=== PATIENT | male | born 1995 | race Two or more races ===

== ENCOUNTER 2020-05-22 11:55 | Observation (INO) | payer SELFPAY ==
[2020-05-22] VITALS (9 sets, daily range): BP systolic 94–120; BP diastolic 48–58
[~2020-05-22] VITALS: Ht 180.3 cm; Wt 80.2 kg
[2020-05-22] MEDS ORDERED: ONDANSETRON PF 4 MG/2 ML VIAL. IV ONE (12:15)
[2020-05-22] MEDS ORDERED: fentaNYL PF VIAL 100 MCG/2 ML VIAL IV ONE ×2 (12:15→13:15)
[2020-05-22] MEDS ORDERED: IV NORMAL SALINE 1000ML BAG 1,000 ML IV ONE (12:15)
[2020-05-22 12:24] LABS: BASO % 0 % (0-3); EOS % 0 % (0-3); HEMATOCRIT 46.5 % (39.0-53.0); HEMOGLOBIN 16.1 g/dL (13.0-17.5); LYMPH # 1.5 x10^3/uL (1.0-4.8); LYMPH % 6 % (24-48); MEAN CORPUSCULAR HEMOGLOBIN 31 pg (25-35); MEAN CORPUSCULAR HGB CONC 35 g/dL (31-37); MEAN CORPUSCULAR VOLUME 90 fL (79-100); MONO # 1.1 x10^3/uL (0.0-1.1); MONO % 5 % (0-9); NEUT # 21.1 x10^3/uL (1.8-7.7); NEUT % 89 % (31-73); PLATELET COUNT 242 x10^3/uL (140-400); RED BLOOD COUNT 5.17 x10^6/uL (4.30-5.70); RED CELL DISTRIBUTION WIDTH 12.7 % (11.5-14.5); WHITE BLOOD COUNT 23.7 x10^3/uL (4.0-11.0)
[2020-05-22 12:35] LABS: CALCIUM 9.7 mg/dL (8.5-10.1); CREATININE 1.2 mg/dL (0.7-1.3); GFR 74.4; POTASSIUM 3.8 mmol/L (3.5-5.1)
[2020-05-22 12:36] LABS: PROTHROMBIN TIME PATIENT 15.8 SEC (11.7-14.0)
[2020-05-22 12:40] LABS: ALBUMIN 3.9 g/dL (3.4-5.0); ALBUMIN/GLOBULIN RATIO 0.9 (1.0-1.7); TOTAL BILIRUBIN 1.2 mg/dL (0.2-1.0); TOTAL PROTEIN 8.4 g/dL (6.4-8.2)
--- NOTE | 2020-05-22 12:55 | RAD ---
PQRS Compliance Statement: One or more of the following individualized dose reduction techniques were utilized for this examination: 1. Automated exposure control 2. Adjustment of the mA and/or kV according to patient size 3. Use of iterative reconstruction technique CT ABD PELV W/ IV CONTRST ONLY Clinical Indication: Reason: penetrating trauma, hit by animal on low abdomen pelvis area. Comparison: None. Technique: Helical CT imaging of the abdomen and pelvis is performed after 75 cc of Omnipaque 300 IV contrast. Oral contrast not administered. Findings: There are a few tiny foci of subcutaneous air of the bilateral mid abdominal wall, coronal image 9. There is small pocket of intramuscular air of the lower right oblique muscle. There are bubbles of intraperitoneal air in the right lower abdomen with associated induration, for example image 65. There is induration lateral to the ascending colon, coronal image 19. No obvious penetrating injury to the colon is identified. Minimal discoid atelectasis or scarring in the lateral left lower lobe. Lung bases otherwise clear. Cardiac size normal. The liver, gallbladder, spleen, pancreas, adrenal glands, abdominal aorta, and kidneys are normal. No obvious abnormality of the stomach. There is no dilated small bowel. No colon wall thickening is seen. Appendix not seen, no secondary signs of appendicitis. No abdominal adenopathy. Urinary bladder is normal. The prostate and seminal vesicles are normal. There is no pelvic free fluid. Bilateral inguinal lymph nodes may be reactive. There is subcutaneous induration of the anterior right upper thigh and the right lateral abdominal wall, coronal image 8. No acute bone abnormality. IMPRESSION: There is evidence of penetrating injury of the right lower abdomen. There is induration and trace fluid lateral to the ascending colon. There is a small amount of intraperitoneal air in the right lower abdomen. No obvious penetrating injury of the ascending colon is identified. Electronically signed by: Chavez Caban MD (05/22/2020 12:52 PM) [id number]
[2020-05-22] MEDS ORDERED: IOHEXOL 300 MG/ML 100ML VIAL. IV ONE (13:00)
[2020-05-22] MEDS ORDERED: CONTRAST GIVEN. MC PRN (13:00)
[2020-05-22] MEDS ORDERED: ONDANSETRON PF 4 MG/2 ML VIAL. IV PRN ×2 (13:30→16:00)
[2020-05-22] MEDS: IV NORMAL SALINE 1000ML BAG 1,000 ML IV SCH ×2 (13:33→17:09)
--- NOTE | 2020-05-22 13:36 | PHYS DOC ---
Past Medical History Past Medical History: No Pertinent History Past Surgical History: No Surgical History Smoking Status: Current Every Day Smoker Alcohol Use: None General Adult EDM: Chief Complaint: TRAUMA ALERT HPI: HPI: Patient is a 25-year-old male who presents POV as a trauma alert. Patient states that he was gored in the right lower quadrant by a [employer] at approximately midnight today. He last ate at approximately 1 AM. He states the pain has intensified over the course of the last 12 hours. He denies any nausea or vomiting. He is not noticed any blood in his stool. He has not noticed any blood in his urine. He is felt nauseous but no vomiting. [] Review of Systems: Review of Systems: Constitutional: Denies fever or chills. [] Eyes: Denies change in visual acuity. [] HENT: Denies nasal congestion or sore throat. [] Respiratory: Denies cough or shortness of breath. [] Cardiovascular: Denies chest pain or edema. [] GI: Per HPI [] : Denies dysuria. [] Musculoskeletal: Denies back pain or joint pain. [] Integument: Denies rash. [] Neurologic: Denies headache, focal weakness or sensory changes. [] Endocrine: Denies polyuria or polydipsia. [] Lymphatic: Denies swollen glands. [] Psychiatric: Reports anxiety [] Heart Score: Risk Factors: Risk Factors: DM, Current or recent (<one month) smoker, HTN, HLP, family history of CAD, obesity. Risk Scores: Score 0 - 3: 2.5% MACE over next 6 weeks - Discharge Home Score 4 - 6: 20.3% MACE over next 6 weeks - Admit for Clinical Observation Score 7 - 10: 72.7% MACE over next 6 weeks - Early Invasive Strategies Current Medications: Current Medications Medications (Trade) Dose Ordered Sig/Mihai Start Time Stop Time Status Last Admin Dose Admin Cefazolin Sodium/ Dextrose 50 ml @ 100 mls/hr 1X ONCE 05/22/20 12:15 05/22/20 12:44 DC 05/22/20 12:41 100 MLS/HR Fentanyl Citrate (Fentanyl 2ml Vial) 50 mcg PRN Q1HR PRN 05/22/20 13:30 05/23/20 13:29 Info (CONTRAST GIVEN -- Rx MONITORING) 1 each PRN DAILY PRN 05/22/20 13:00 05/24/20 12:59 Iohexol (Omnipaque 300 Mg/ml) 75 ml 1X ONCE 05/22/20 13:00 05/22/20 13:01 DC Ondansetron HCl (Zofran) 4 mg PRN Q8HRS PRN 05/22/20 13:30 05/23/20 13:29 Sodium Chloride 1,000 ml @ 150 mls/hr Q6H40M 05/22/20 13:22 05/23/20 13:21 Allergies: Allergies: Allergies Coded Allergies Type Severity Reaction Last Updated Verified No Known Drug Allergies 05/22/20 No Physical Exam: PE: Constitutional: Well developed, well nourished, moderate distress, non-toxic appearance. [] HENT: Normocephalic, atraumatic, bilateral external ears normal, oropharynx moist, no oral exudates, nose normal. [] Eyes: PERRLA, EOMI, conjunctiva normal, no discharge. [] Neck: Normal range of motion, no tenderness, supple, no stridor. [] Cardiovascular:Heart rate regular rhythm, no murmur [] Lungs & Thorax: Bilateral breath sounds clear to auscultation [] Abdomen: Diffusely tender to palp with guarding and rebound most specific in the right lower quadrant [] Skin: 3 to 4 cm horizontal laceration in the right lower quadrant with surrounding swelling as well as tenderness, there is an abrasion in his right anterior upper thigh [] Back: No tenderness, no CVA tenderness. [] Extremities: No tenderness, no cyanosis, no clubbing, ROM intact, no edema. [] Neurologic: Alert and oriented X 3, normal motor function, normal sensory function, no focal deficits noted. [] Psychologic: Anxious. [] Current Patient Data: Labs: Laboratory Tests Test 05/22/20 12:10 White Blood Count 23.7 x10^3/uL (4.0-11.0) H Red Blood Count 5.17 x10^6/uL (4.30-5.70) Hemoglobin 16.1 g/dL (13.0-17.5) Hematocrit 46.5 % (39.0-53.0) Mean Corpuscular Volume 90 fL (79-100) Mean Corpuscular Hemoglobin 31 pg (25-35) Mean Corpuscular Hemoglobin Concent 35 g/dL (31-37) Red Cell Distribution Width 12.7 % (11.5-14.5) Platelet Count 242 x10^3/uL (140-400) Neutrophils (%) (Auto) 89 % (31-73) H Lymphocytes (%) (Auto) 6 % (24-48) L Monocytes (%) (Auto) 5 % (0-9) Eosinophils (%) (Auto) 0 % (0-3) Basophils (%) (Auto) 0 % (0-3) Neutrophils # (Auto) 21.1 x10^3/uL (1.8-7.7) H Lymphocytes # (Auto) 1.5 x10^3/uL (1.0-4.8) Monocytes # (Auto) 1.1 x10^3/uL (0.0-1.1) Eosinophils # (Auto) 0.0 x10^3/uL (0.0-0.7) Basophils # (Auto) 0.0 x10^3/uL (0.0-0.2) Platelet Estimate Pending Prothrombin Time 15.8 SEC (11.7-14.0) H Prothrombin Time INR 1.3 (0.8-1.1) H Sodium Level 136 mmol/L (136-145) Potassium Level 3.8 mmol/L (3.5-5.1) Chloride Level 100 mmol/L (98-107) Carbon Dioxide Level 27 mmol/L (21-32) Anion Gap 9 (6-14) Blood Urea Nitrogen 11 mg/dL (8-26) Creatinine 1.2 mg/dL (0.7-1.3) Estimated GFR (Cockcroft-Gault) 74.4 BUN/Creatinine Ratio 9 (6-20) Glucose Level 110 mg/dL (70-99) H Calcium Level 9.7 mg/dL (8.5-10.1) Total Bilirubin 1.2 mg/dL (0.2-1.0) H Aspartate Amino Transferase (AST) 45 U/L (15-37) H Alanine Aminotransferase (ALT) 41 U/L (16-63) Alkaline Phosphatase 86 U/L (46-116) Total Protein 8.4 g/dL (6.4-8.2) H Albumin 3.9 g/dL (3.4-5.0) Albumin/Globulin Ratio 0.9 (1.0-1.7) L Ethyl Alcohol Level < 10 mg/dL (0-10) Laboratory Tests 05/22/20 12:10 Laboratory Tests 05/22/20 12:10 Vital Signs: Vital Signs Date Time Temp Pulse Resp B/P (MAP) Pulse Ox O2 Delivery O2 Flow Rate FiO2 05/22/20 11:58 98.7 87 20 156/79 (104) 96 Room Air 98.7 EKG: EKG: [] Radiology/Procedures: Radiology/Procedures: []REASON: penetrating trauma, hit by animal on low abdomen pelvis area. PROCEDURE: CT ABD PELV W/ IV CONTRST ONLY PQRS Compliance Statement: One or more of the following individualized dose reduction techniques were utilized for this examination: 1. Automated exposure control 2. Adjustment of the mA and/or kV according to patient size 3. Use of iterative reconstruction technique CT ABD PELV W/ IV CONTRST ONLY Clinical Indication: Reason: penetrating trauma, hit by animal on low abdomen pelvis area. Comparison: None. Technique: Helical CT imaging of the abdomen and pelvis is performed after 75 cc of Omnipaque 300 IV contrast. Oral contrast not administered. Findings: There are a few tiny foci of subcutaneous air of the bilateral mid abdominal wall, coronal image 9. There is small pocket of intramuscular air of the lower right oblique muscle. There are bubbles of intraperitoneal air in the right lower abdomen with associated induration, for example image 65. There is induration lateral to the ascending colon, coronal image 19. No obvious penetrating injury to the colon is identified. Minimal discoid atelectasis or scarring in the lateral left lower lobe. Lung bases otherwise clear. Cardiac size normal. The liver, gallbladder, spleen, pancreas, adrenal glands, abdominal aorta, and kidneys are normal. No obvious abnormality of the stomach. There is no dilated small bowel. No colon wall thickening is seen. Appendix not seen, no secondary signs of appendicitis. No abdominal adenopathy. Urinary bladder is normal. The prostate and seminal vesicles are normal. There is no pelvic free fluid. Bilateral inguinal lymph nodes may be reactive. There is subcutaneous induration of the anterior right upper thigh and the right lateral abdominal wall, coronal image 8. No acute bone abnormality. IMPRESSION: There is evidence of penetrating injury of the right lower abdomen. There is induration and trace fluid lateral to the ascending colon. There is a small amount of intraperitoneal air in the right lower abdomen. No obvious penetrating injury of the ascending colon is identified. Course & Med Decision Making: Course & Med Decision Making Pertinent Labs and Imaging studies reviewed. (See chart for details) [ED course: Evaluation reveals a 25-year-old male with a penetrating wound to his right lower quadrant. CT scan shows that this did penetrate the abdominal cavity as there is some intraperitoneal air but no obvious bowel injury. Patient was given a total of 100 mcg of fentanyl during his stay in the department he was also given 2 g of Ancef and 1 L of IV fluids. His blood pressure remained stable throughout his stay in the department. I spoke with Dr. Beck our general surgeon who agreed to accept the patient.] CRITICAL CARE: Time spent was 35 minutes. This includes medical management, evaluation, reevaluation, discussion with consultants and family. Critical Care does NOT include time spent on separately billed procedures. Dragon Disclaimer: Dragon Disclaimer: This electronic medical record was generated, in whole or in part, using a voice recognition dictation system. Departure Departure Impression: Primary Impression: Penetrating abdominal trauma Qualified Codes: S31.109A - Unspecified open wound of abdominal wall, unspecified quadrant without penetration into peritoneal cavity, initial encounter Disposition: ADMITTED INPATIENT Admitting Physician: VEENA Condition: STABLE Referrals: NO PCP (PCP) Justicifation of Admission Dx: Justifications for Admission: Justification of Admission Dx: Yes Comments: Penetrating abdominal trauma EDMOND GUAJARDO DO May 22, 2020 13:36
[2020-05-22 14:21] LABS: % BANDS 10 % (0-9); % LYMPHS 9 % (24-48); % MONOS 7 % (0-10); % SEGS 74 % (35-66); PLT ESTIMATE ADEQUATE (ADEQUATE)
[2020-05-22] MEDS: fentaNYL PF VIAL 100 MCG/2 ML VIAL IV PRN ×3 (14:22→19:58)
--- NOTE | 2020-05-22 14:25 | PDOC2 ---
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 Patient came to the emergency room for further evaluation CT scan was done of the abdomen and pelvis which shows penetrating injury to the right lower quadrant with some subcutaneous emphysema as well as small amount of free air within the abdomen no ascites. Past Medical History Cardiovascular: No pertinent hx Pulmonary: No pertinent hx GI: No pertinent hx Heme/Onc: No pertinent hx Hepatobiliary: No pertinent hx Psych: No pertinent hx Rheumatologic: No pertinent hx Infectious disease: No pertinent hx ENT: No pertinent hx Renal/: No pertinent hx Endocrine: No pertinent hx Dermatology: No pertinent hx Past Surgical History Past Surgical History: No pertinent history Family History Family History: No Significant Social History No ALCOHOL: occassional Drugs: None Lives: with Family Current Problem List Problem List Problems Medical Problems: (1) Penetrating abdominal trauma Status: Acute Current Medications Current Medications Current Medications Sodium Chloride 1,000 ml @ 1,000 mls/hr 1X ONCE IV Last administered on 05/22/20at 12:22; Start 05/22/20 at 12:15; Stop 05/22/20 at 13:14; Status DC Fentanyl Citrate (Fentanyl 2ml Vial) 50 mcg 1X ONCE IV Last administered on 05/22/20at 12:22; Start 05/22/20 at 12:15; Stop 05/22/20 at 12:16; Status DC Ondansetron HCl (Zofran) 4 mg 1X ONCE IV Last administered on 05/22/20at 12:20; Start 05/22/20 at 12:15; Stop 05/22/20 at 12:16; Status DC Cefazolin Sodium/ Dextrose 50 ml @ 100 mls/hr 1X ONCE IV Last administered on 05/22/20at 12:41; Start 05/22/20 at 12:15; Stop 05/22/20 at 12:44; Status DC Iohexol (Omnipaque 300 Mg/ml) 75 ml 1X ONCE IV ; Start 05/22/20 at 13:00; Stop 05/22/20 at 13:01; Status DC Info (CONTRAST GIVEN -- Rx MONITORING) 1 each PRN DAILY PRN MC SEE COMMENTS; Start 05/22/20 at 13:00; Stop 05/24/20 at 12:59 Fentanyl Citrate (Fentanyl 2ml Vial) 50 mcg 1X ONCE IV Last administered on 05/22/20at 13:34; Start 05/22/20 at 13:15; Stop 05/22/20 at 13:16; Status DC Ondansetron HCl (Zofran) 4 mg PRN Q8HRS PRN IV NAUSEA/VOMITING; Start 05/22/20 at 13:30; Stop 05/23/20 at 13:29 Fentanyl Citrate (Fentanyl 2ml Vial) 50 mcg PRN Q1HR PRN IV PAIN; Start 05/22/20 at 13:30; Stop 05/23/20 at 13:29 Sodium Chloride 1,000 ml @ 150 mls/hr Q6H40M IV Last administered on 05/22/20at 13:33; Start 05/22/20 at 13:22; Stop 05/23/20 at 13:21 Allergies Allergies: Coded Allergies: No Known Drug Allergies (Unverified , 05/22/20) ROS Gastrointestinal: Yes Nausea, Yes Abdominal Pain Physical Exam General: Alert, Oriented X3, Cooperative, mild distress HEENT: Atraumatic, EOMI Lungs: Clear to auscultation, Normal air movement Heart: Regular rate, No murmurs Abdomen: Normal bowel sounds, Soft, Other (Tender to palpation right lower quadrant no peritoneal signs) Extremities: No edema Skin: No significant lesion Neuro: Normal speech Psych/Mental Status: Mental status NL Vitals VITALS Vital Signs Date Time Temp Pulse Resp B/P (MAP) Pulse Ox O2 Delivery O2 Flow Rate FiO2 05/22/20 13:34 18 98 Room Air 05/22/20 11:58 98.7 87 156/79 (104) 98.7 Labs Labs Laboratory Tests Test 05/22/20 12:10 White Blood Count 23.7 x10^3/uL (4.0-11.0) Red Blood Count 5.17 x10^6/uL (4.30-5.70) Hemoglobin 16.1 g/dL (13.0-17.5) Hematocrit 46.5 % (39.0-53.0) Mean Corpuscular Volume 90 fL (79-100) Mean Corpuscular Hemoglobin 31 pg (25-35) Mean Corpuscular Hemoglobin Concent 35 g/dL (31-37) Red Cell Distribution Width 12.7 % (11.5-14.5) Platelet Count 242 x10^3/uL (140-400) Neutrophils (%) (Auto) 89 % (31-73) Lymphocytes (%) (Auto) 6 % (24-48) Monocytes (%) (Auto) 5 % (0-9) Eosinophils (%) (Auto) 0 % (0-3) Basophils (%) (Auto) 0 % (0-3) Neutrophils # (Auto) 21.1 x10^3/uL (1.8-7.7) Lymphocytes # (Auto) 1.5 x10^3/uL (1.0-4.8) Monocytes # (Auto) 1.1 x10^3/uL (0.0-1.1) Eosinophils # (Auto) 0.0 x10^3/uL (0.0-0.7) Basophils # (Auto) 0.0 x10^3/uL (0.0-0.2) Prothrombin Time 15.8 SEC (11.7-14.0) Prothromb Time International Ratio 1.3 (0.8-1.1) Sodium Level 136 mmol/L (136-145) Potassium Level 3.8 mmol/L (3.5-5.1) Chloride Level 100 mmol/L (98-107) Carbon Dioxide Level 27 mmol/L (21-32) Anion Gap 9 (6-14) Blood Urea Nitrogen 11 mg/dL (8-26) Creatinine 1.2 mg/dL (0.7-1.3) Estimated GFR (Cockcroft-Gault) 74.4 BUN/Creatinine Ratio 9 (6-20) Glucose Level 110 mg/dL (70-99) Calcium Level 9.7 mg/dL (8.5-10.1) Total Bilirubin 1.2 mg/dL (0.2-1.0) Aspartate Amino Transf (AST/SGOT) 45 U/L (15-37) Alanine Aminotransferase (ALT/SGPT) 41 U/L (16-63) Alkaline Phosphatase 86 U/L (46-116) Total Protein 8.4 g/dL (6.4-8.2) Albumin 3.9 g/dL (3.4-5.0) Albumin/Globulin Ratio 0.9 (1.0-1.7) Ethyl Alcohol Level < 10 mg/dL (0-10) Laboratory Tests Test 05/22/20 12:10 White Blood Count 23.7 x10^3/uL (4.0-11.0) Red Blood Count 5.17 x10^6/uL (4.30-5.70) Hemoglobin 16.1 g/dL (13.0-17.5) Hematocrit 46.5 % (39.0-53.0) Mean Corpuscular Volume 90 fL (79-100) Mean Corpuscular Hemoglobin 31 pg (25-35) Mean Corpuscular Hemoglobin Concent 35 g/dL (31-37) Red Cell Distribution Width 12.7 % (11.5-14.5) Platelet Count 242 x10^3/uL (140-400) Neutrophils (%) (Auto) 89 % (31-73) Lymphocytes (%) (Auto) 6 % (24-48) Monocytes (%) (Auto) 5 % (0-9) Eosinophils (%) (Auto) 0 % (0-3) Basophils (%) (Auto) 0 % (0-3) Neutrophils # (Auto) 21.1 x10^3/uL (1.8-7.7) Lymphocytes # (Auto) 1.5 x10^3/uL (1.0-4.8) Monocytes # (Auto) 1.1 x10^3/uL (0.0-1.1) Eosinophils # (Auto) 0.0 x10^3/uL (0.0-0.7) Basophils # (Auto) 0.0 x10^3/uL (0.0-0.2) Prothrombin Time 15.8 SEC (11.7-14.0) Prothromb Time International Ratio 1.3 (0.8-1.1) Sodium Level 136 mmol/L (136-145) Potassium Level 3.8 mmol/L (3.5-5.1) Chloride Level 100 mmol/L (98-107) Carbon Dioxide Level 27 mmol/L (21-32) Anion Gap 9 (6-14) Blood Urea Nitrogen 11 mg/dL (8-26) Creatinine 1.2 mg/dL (0.7-1.3) Estimated GFR (Cockcroft-Gault) 74.4 BUN/Creatinine Ratio 9 (6-20) Glucose Level 110 mg/dL (70-99) Calcium Level 9.7 mg/dL (8.5-10.1) Total Bilirubin 1.2 mg/dL (0.2-1.0) Aspartate Amino Transf (AST/SGOT) 45 U/L (15-37) Alanine Aminotransferase (ALT/SGPT) 41 U/L (16-63) Alkaline Phosphatase 86 U/L (46-116) Total Protein 8.4 g/dL (6.4-8.2) Albumin 3.9 g/dL (3.4-5.0) Albumin/Globulin Ratio 0.9 (1.0-1.7) Ethyl Alcohol Level < 10 mg/dL (0-10) Assessment/Plan Assessment/Plan Penetrating trauma right lower quadrant concern for intra-abdominal injury we will plan on diagnostic laparoscopy and repair if injury noted LAURYN MARQUEZ MD May 22, 2020 14:25
[2020-05-22] MEDS ORDERED: MIDAZOLAM HCL/PF 2 MG/2 ML VIAL. ONE (14:49)
[2020-05-22] MEDS ORDERED: fentaNYL PF VIAL 100 MCG/2 ML VIAL ONE (14:49)
[2020-05-22] MEDS ORDERED: ROCURONIUM 50 MG/5 ML VIAL. ONE (14:49)
[2020-05-22] MEDS ORDERED: SEVOFLURANE 61 TO 120 MINUTES. IH ONE (14:50)
[2020-05-22] MEDS ORDERED: LIDOCAINE 2% PF 5 ML VIAL. ONE (14:51)
[2020-05-22] MEDS ORDERED: DEXAMETHASONE SOD PHOS 4 MG/ML VIAL ONE (14:51)
[2020-05-22] MEDS ORDERED: ONDANSETRON PF 4 MG/2 ML VIAL. ONE (14:51)
[2020-05-22] MEDS ORDERED: PROPOFOL 10 MG/ML (20ML) VIAL. IV ONE (14:51)
[2020-05-22] MEDS ORDERED: BUPIVACAINE-EPI 0.25%-1:200000 MPF 30 ML VIAL. ONE (15:01)
[2020-05-22] MEDS ORDERED: IV RINGERS,LACTATED 1000ML 1,000 ML IV SCH (15:29)
[2020-05-22] MEDS ORDERED: PROCHLORPERAZINE 10 MG/2 ML VIAL. IV PRN (15:30)
[2020-05-22] MEDS ORDERED: KETOROLAC 30 MG/ML VIAL. ONE (15:34)
[2020-05-22] MEDS ORDERED: NEOSTIGMINE METHYLSULFATE 5 MG/5 ML SYRINGE. ONE (15:42)
[2020-05-22] MEDS ORDERED: GLYCOPYRROLATE 1 MG/5 ML VIAL. ONE (15:42)
[2020-05-22] MEDS ORDERED: IV DEXTROSE 5%-LACT RINGERS 1,000 ML IV SCH (15:49)
--- NOTE | 2020-05-22 15:49 | PDOC4 ---
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 The procedure of diagnostic laparoscopy was explained to the patient detail risk-benefit were also discussed including bleeding infection injury to intra-abdominal contents possible necessitating further open operations alternatives to this procedure also discussed with the patient who seemed to understand and gave both verbal and written consent to have the procedure performed. Patient was taken to the operating room placed in the supine position general anesthesia was initiated once patient was sleeping in bed his abdomen was prepped and draped usual sterile fashion using ChloraPrep and area just below the umbilicus was injected quarter percent Marcaine with epinephrine incision was made 11 blade scalpel and a varies needle was placed within the abdomen creating pneumoperitoneum once this complete 5 mm port was placed and a 5 mm camera's placed within the abdomen which was inspected there was a little bit of inflammation in the right lower quadrant a second 5 mm port was placed in the right midabdomen and a third 5 mm port was placed below the umbilicus. The cecum was grasped and retracted medially exposing the lateral aspect of the cecum there would appear to be no perforation of the cecum or injury to the bowel there was some bruising along the peritoneum in the right lower quadrant but did not appear to be a defect in the fascia. No free fluid noted in the pelvis. At this point the pneumoperitoneum was reduced all ports were removed the port sites were all closed with 4 subcuticular Monocryl Mastisol Steri-Strips and island dressings were applied. Patient was awakened and extubated in the operating room taken recovery in stable condition all sponge instrument needle counts listed as correct estimated blood loss 5 mL LAURYN MARQUEZ MD May 22, 2020 15:49
[2020-05-22] MEDS ORDERED: 0.9 % SODIUM CHLORIDE 10 ML DISP.SYRIN. IV PRN (16:00)
[2020-05-22] MEDS ORDERED: oxyCODONE/APAP 5/325 1 TAB TABLET PO PRN (16:00)
[2020-05-22] MEDS ORDERED: MORPHINE SULFATE 2 MG/ML VIAL. IV PRN (16:00)
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
[2020-05-22] MEDS: KETOROLAC 15 MG/ML VIAL. IV SCH (19:58)
[2020-05-22] MEDS: oxyCODONE/APAP 5/325 1 TAB TABLET PO PRN (20:01)
[2020-05-22] MEDS: cefOXitin SODIUM IV Push 1 GM VIAL. IVP SCH (20:08)
[2020-05-23] MEDS: cefOXitin SODIUM IV Push 1 GM VIAL. IVP SCH (02:26)
[2020-05-23] MEDS: KETOROLAC 15 MG/ML VIAL. IV SCH ×3 (02:35→12:27)
[2020-05-23] MEDS: oxyCODONE/APAP 5/325 1 TAB TABLET PO PRN ×3 (02:35→13:32)
[2020-05-23 02:42] VITALS: BP 113/58
[2020-05-23] MEDS: IV NORMAL SALINE 1000ML BAG 1,000 ML IV SCH (02:42)
[2020-05-23 05:12] LABS: BASO % 0 % (0-3); EOS % 0 % (0-3); HEMATOCRIT 39.6 % (39.0-53.0); LYMPH # 0.9 x10^3/uL (1.0-4.8); LYMPH % 5 % (24-48); MEAN CORPUSCULAR HEMOGLOBIN 30 pg (25-35); MEAN CORPUSCULAR HGB CONC 33 g/dL (31-37); MEAN CORPUSCULAR VOLUME 93 fL (79-100); MONO # 0.7 x10^3/uL (0.0-1.1); MONO % 4 % (0-9); NEUT # 17.4 x10^3/uL (1.8-7.7); NEUT % 91 % (31-73); PLATELET COUNT 188 x10^3/uL (140-400); RED BLOOD COUNT 4.27 x10^6/uL (4.30-5.70); RED CELL DISTRIBUTION WIDTH 12.9 % (11.5-14.5); WHITE BLOOD COUNT 19.1 x10^3/uL (4.0-11.0)
[2020-05-23 05:39] LABS: ALBUMIN 3.1 g/dL (3.4-5.0); CALCIUM 8.7 mg/dL (8.5-10.1); CREATININE 1.2 mg/dL (0.7-1.3); GFR 74.4; POTASSIUM 4.2 mmol/L (3.5-5.1); TOTAL BILIRUBIN 0.8 mg/dL (0.2-1.0); TOTAL PROTEIN 6.3 g/dL (6.4-8.2)
[2020-05-23 07:26] VITALS: BP 107/55
[2020-05-23] MEDS ORDERED: OXYC1TAB15 PO (09:29)
[2020-05-23] MEDS ORDERED: DOCU-109 PO (09:29)
[2020-05-23 10:44] VITALS: BP 118/58
--- NOTE | 2020-05-23 14:03 | NUR ---
SS following for discharge planning. SS reviewed pt chart and discussed with pt RN. Pt is from home and is currently on room air. Discharge order on the chart for home with self care.
--- NOTE | 2020-05-23 14:45 | NUR ---
Discharge Note: [facility] Discharge instructions and discharge home medications reviewed with Patient and a copy given. All questions have been answered and understanding verbalized. The following instructions and handouts were given: Taking pain meds, surgical site infection Discontinued lines and drains: IV catheter removed intact. Patient discharged to Home with Self care via wheelchair. Perscription called into [facility] and pt notified.
== END 2020-05-23 14:30 | disposition home or self-care (01) ==
LOC: ER 11:55 → 2 SOUTH 16:20
PROVIDERS: ADMIT Surgery; ATTEND Surgery
DX: Z03.818 Encounter for observation for suspected exposure to other biological agents ruled out (principal); S31.109A Unspecified open wound of abdominal wall, unspecified quadrant without penetration into peritoneal cavity, initial encounter; F17.200 Nicotine dependence, unspecified, uncomplicated; Z79.899 Other long term (current) drug therapy; W55.32XA Struck by other hoof stock, initial encounter; Y93.89 Activity, other specified; Y92.89 Other specified places as the place of occurrence of the external cause; Y99.8 Other external cause status
CPT/HCPCS: 36415; 49320; 74177; 80053; 85007; 85025; 85610; 87426; 96361; 96365; 96375; 96376; 99291; A7015; G0378; G0480; J0690; J0694; J1100; J1885; J2250; J2405; J2704; J2710; J3010; J3490; J7030; J7121; Q9967; U0003; G0379